=== PATIENT | male | born 2000 | race Two or more races ===

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

== ENCOUNTER 2019-09-06 21:46 | Emergency (ER) | payer SELFPAY ==
[~2019-09-06] VITALS: Ht 170.2 cm; Wt 74.5 kg
[~2019-09-06 21:46] MED LIST: HYDR-2761 PO
--- NOTE | 2019-09-06 22:27 | PHYS DOC ---
Past Medical History Past Medical History: No Pertinent History, Other Additional Past Medical Histor: L SHOULDER DISLOCATIONx2 Past Surgical History: No Surgical History Smoking Status: Current Every Day Smoker Additional Information: .25/ppd Alcohol Use: None Drug Use: None Social History Narrative: last use 09/05/19 General Adult EDM: Chief Complaint: DEHYDRATION HPI: HPI: Patient is a 19 year old male who presents with complaint of generalized body cramps and decreased urination that started earlier in the day about 12 hours ago. Patient indicates that he works out in the heat and has been trying to drink plenty of fluids but states that he feels like he has not been keeping up. He rates pain in his abdominal wall and legs and an 8 out of 10. He denies any nausea or vomiting. He does indicate that his urine has been very dark. [] Review of Systems: Review of Systems: Constitutional: Denies fever or chills. [] Respiratory: Denies cough or shortness of breath. [] Cardiovascular: Denies chest pain or edema. [] GI: Denies abdominal pain, nausea, vomiting or diarrhea. [] Musculoskeletal: Complains of body cramps and pain. [] Integument: Denies rash. [] Neurologic: Denies headache, focal weakness or sensory changes. [] A full 10 point review of systems has been reviewed and is otherwise negative. Heart Score: Risk Factors: Risk Factors: DM, Current or recent (<one month) smoker, HTN, HLP, family hi story of CAD, obesity. Risk Scores: Score 0 - 3: 2.5% MACE over next 6 weeks - Discharge Home Score 4 - 6: 20.3% MACE over next 6 weeks - Admit for Clinical Observation Score 7 - 10: 72.7% MACE over next 6 weeks - Early Invasive Strategies Allergies: Allergies: Allergies Coded Allergies Type Severity Reaction Last Updated Verified No Known Drug Allergies 07/11/16 No Physical Exam: PE: Constitutional: Well developed, well nourished, no acute distress, non-toxic appearance. [] HENT: Normocephalic, atraumatic, bilateral external ears normal, oropharynx moist, no oral exudates, nose normal. [] Eyes: PERRLA, EOMI, conjunctiva normal, no discharge. [] Neck: Normal range of motion, no tenderness, supple, no stridor. [] Cardiovascular:Heart rate regular rhythm, no murmur [] Lungs & Thorax: Bilateral breath sounds clear to auscultation [] Abdomen: Bowel sounds normal, soft, no tenderness. [] Skin: Warm, dry, no erythema, no rash. [] Extremities: No tenderness, no cyanosis, no clubbing, ROM intact, no edema. [] Neurologic: Alert and oriented X 3, no focal deficits noted. [] Current Patient Data: Vital Signs: Vital Signs Date Time Temp Pulse Resp B/P (MAP) Pulse Ox O2 Delivery O2 Flow Rate FiO2 09/06/19 21:50 97.5 112 21 119/71 (87) 99 Room Air 97.5 EKG: EKG: [] Radiology/Procedures: Radiology/Procedures: [] Course & Med Decision Making: Course & Med Decision Making Pertinent Labs and Imaging studies reviewed. (See chart for details) [] Dragon Disclaimer: Dragon Disclaimer: This electronic medical record was generated, in whole or in part, using a voice recognition dictation system. Departure Departure Impression: Primary Impression: Heat cramp, initial encounter Additional Impression: Dehydration Disposition: 01 HOME, SELF-CARE Condition: STABLE Referrals: NO PCP (PCP) Patient Instructions: Dehydration, Adult, Heat Illness-SportsMed Scripts Tramadol Hcl (TRAMADOL HCL) 50 Mg Tablet 50 MG PO Q6HRS PRN for PAIN, #10 TAB Prov: SERGEY LEDESMA Jr. DO 09/06/19 Ondansetron (ONDANSETRON ODT) 4 Mg Tab.rapdis 1 TAB PO PRN Q6-8HRS PRN for NAUSEA, #15 TAB Prov: SERGEY LEDESMA Jr. DO 09/06/19 Justicifation of Admission Dx: Justifications for Admission: Justification of Admission Dx: Comment: (Not applicable) SERGEY LEDESMA Jr. DO Sep 06, 2019 22:27
[2019-09-06 22:29] LABS: BASO % 0 % (0-3); EOS % 0 % (0-3); HEMOGLOBIN 17.4 g/dL (13.0-17.5); MEAN CORPUSCULAR HEMOGLOBIN 30 pg (25-35); MONO % 11 % (0-9); NEUT # 6.9 x10^3/uL (1.8-7.7); RED BLOOD COUNT 5.81 x10^6/uL (4.30-5.70)
[2019-09-06] MEDS ORDERED: fentaNYL PF VIAL 100 MCG/2 ML VIAL IV PRN (22:30)
[2019-09-06] MEDS ORDERED: ONDANSETRON PF 4 MG/2 ML VIAL. IVP ONE (22:30)
[2019-09-06] MEDS ORDERED: IV NORMAL SALINE 1000ML BAG 1,000 ML IV SCH (22:30)
[2019-09-06 22:38] LABS: CALCIUM 9.7 mg/dL (8.5-10.1); CREATININE 1.5 mg/dL (0.7-1.3); GFR 59.1; POTASSIUM 3.4 mmol/L (3.5-5.1)
[2019-09-06 22:45] LABS: ALBUMIN 5.1 g/dL (3.4-5.0); ALBUMIN/GLOBULIN RATIO 1.5 (1.0-1.7); TOTAL BILIRUBIN 1.5 mg/dL (0.2-1.0); TOTAL PROTEIN 8.4 g/dL (6.4-8.2)
[2019-09-06 22:48] LABS: BILIRUBIN,URINE NEGATIVE (NEG); CLARITY,URINE CLEAR; COLOR,URINE AMBER; NITRITE,URINE NEGATIVE (NEG); PH,URINE 8.5 (<5.0-8.0); PROTEIN,URINE 30 mg/dL (NEG-TRACE)
[2019-09-06 22:56] LABS: HEMATOCRIT 49.2 % (39.0-53.0); LYMPH % 26 % (24-48); MEAN CORPUSCULAR HGB CONC 35 g/dL (31-37); MEAN CORPUSCULAR VOLUME 85 fL (79-100); NEUT % 63 % (31-73); PLATELET COUNT 394 x10^3/uL (140-400); RED CELL DISTRIBUTION WIDTH 13.4 % (11.5-14.5); WHITE BLOOD COUNT 11.1 x10^3/uL (4.0-11.0)
[2019-09-06 22:57] LABS: LYMPH # 2.9 x10^3/uL (1.0-4.8); MONO # 1.2 x10^3/uL (0.0-1.1)
[2019-09-06 23:00] LABS: AMORPHOUS SEDIMENT,UR PRESENT /HPF; BACTERIA,URINE 0 /HPF (0-FEW); RBC,URINE 0 /HPF (0-2); SQUAMOUS EPITHELIAL CELL,UR FEW /LPF; WBC,URINE RARE /HPF (0-4)
[2019-09-06] MEDS ORDERED: IV NORMAL SALINE 1000ML BAG 1,000 ML IV ONE (23:15)
[2019-09-06 23:24] VITALS: BP 105/55
[2019-09-06] MEDS ORDERED: TRAM50TA PO (23:42)
[2019-09-06] MEDS ORDERED: ONDA4TAB12 PO (23:42)
== END 2019-09-06 23:55 | disposition home or self-care (01) ==
LOC: ER 21:46
DX: T67.2XXA Heat cramp, initial encounter (principal); E86.0 Dehydration; F17.200 Nicotine dependence, unspecified, uncomplicated; X58.XXXA Exposure to other specified factors, initial encounter; Y93.89 Activity, other specified; Y92.89 Other specified places as the place of occurrence of the external cause; Y99.8 Other external cause status
CPT/HCPCS: 36415; 80053; 81001; 82550; 83690; 85025; 96361; 96374; 96375; 99284; J2405; J3010; J7030

== ENCOUNTER 2019-09-15 19:24 | Emergency (ER) | payer SELFPAY ==
[~2019-09-15] VITALS: Ht 167.6 cm; Wt 72.7 kg
[~2019-09-15 19:24] MED LIST changes: +ONDA4TAB12 PO; +TRAM50TA PO
[2019-09-15 19:26] VITALS: BP 130/70
--- NOTE | 2019-09-15 20:19 | PHYS DOC ---
Past Medical History Past Medical History: No Pertinent History, Other Additional Past Medical Histor: L SHOULDER DISLOCATIONx2 Past Surgical History: No Surgical History Smoking Status: Current Every Day Smoker Alcohol Use: Rarely Drug Use: None General Adult EDM: Chief Complaint: SHOULDER INJURY HPI: HPI: Patient is a 19 year old male who presents to the emergency department with complaints of left shoulder pain. Patient reports history of multiple dislocations of his left arm. He states that he was trying to take off his sh irt and felt something abnormal in his left shoulder. Patient denies any injury today. He denies any numbness, tingling, or weakness of the affected extremity. Patient states that since he has been at the emergency department his shoulder pain has improved and he is now able to move his shoulder in all directions without any pain or difficulty. He currently denies pain. Review of Systems: Review of Systems: Constitutional: Denies fever or chills. [] Musculoskeletal: Denies back pain or joint pain. [] Integument: Denies rash. [] Neurologic: Denies headache, focal weakness or sensory changes. [] Psychiatric: Denies depression or anxiety. [] Heart Score: Risk Factors: Risk Factors: DM, Current or recent (<one month) smoker, HTN, HLP, family history of CAD, obesity. Risk Scores: Score 0 - 3: 2.5% MACE over next 6 weeks - Discharge Home Score 4 - 6: 20.3% MACE over next 6 weeks - Admit for Clinical Observation Score 7 - 10: 72.7% MACE over next 6 weeks - Early Invasive Strategies Allergies: Allergies: Allergies Coded Allergies Type Severity Reaction Last Updated Verified No Known Drug Allergies 07/11/16 No Physical Exam: PE: Constitutional: Well developed, well nourished, no acute distress, non-toxic appearance. [] HENT: Normocephalic, atraumatic, bilateral external ears normal, nose normal. [] Eyes: PERRLA, EOMI, conjunctiva normal, no discharge. [] Neck: Normal range of motion, no stridor. [] Cardiovascular:Heart rate regular rhythm Lungs & Thorax: Respirations even and unlabored, no retractions, no respiratory distress Skin: Warm, dry, no erythema, no rash. [] Extremities: Left shoulder: No bony tenderness, no deformity, no crepitus, no cyanosis, ROM intact, no edema. [] Neurologic: Alert and oriented X 3, no focal deficits noted. [] Psychologic: Affect normal, judgement normal, mood normal. [] Current Patient Data: Vital Signs: Vital Signs Date Time Temp Pulse Resp B/P (MAP) Pulse Ox O2 Delivery O2 Flow Rate FiO2 09/15/19 19:26 98.3 93 14 130/70 (90) 99 Room Air 98.3 EKG: EKG: [] Radiology/Procedures: Radiology/Procedures: [] Course & Med Decision Making: Course & Med Decision Making Pertinent Labs and Imaging studies reviewed. (See chart for details) Offered a shoulder x-ray to patient for evaluation of possible resolved dislocation. Pt declined at this time. Will provide pt with Dr. Barragan's informa tion for further evaluation of frequent left shoulder dislocations. Take ibuprofen or tylenol as needed for pain. Patient verbalized an understanding of home care, medications, follow-up, and return to ED instructions and was in agreement with the plan of care. [] Dragon Disclaimer: Dragon Disclaimer: This electronic medical record was generated, in whole or in part, using a voice recognition dictation system. Departure Departure Impression: Primary Impression: Acute pain of left shoulder Disposition: HOME, SELF-CARE Condition: STABLE Referrals: RADHA BARRAGAN II, MD Patient Instructions: Shoulder Pain, [id number] Additional Instructions: Fill prescription(s) and use as directed. Recommend application of ice, elevation, and rest of affected extremity. Follow-up with Dr. Barragan for furt her evaluation of your shoulder. Return to the ER if your symptoms worsen. Justicifation of Admission Dx: Justifications for Admission: Justification of Admission Dx: N/A YURI POTTS VB DEVELOPER Sep 15, 2019 20:18
== END 2019-09-15 20:26 | disposition home or self-care (01) ==
LOC: ER 19:24
DX: M25.512 Pain in left shoulder (principal); F17.200 Nicotine dependence, unspecified, uncomplicated; Z98.890 Other specified postprocedural states
CPT/HCPCS: 99282

== ENCOUNTER 2021-08-17 03:43 | Emergency (ER) | payer BC ==
[~2021-08-17] VITALS: Ht 172.7 cm; Wt 72.7 kg
[2021-08-17] MEDS ORDERED: HYDROmorphone 2 MG/ML INJ. IVP ONE ×2 (04:15→05:15)
[2021-08-17] MEDS ORDERED: LIDOCAINE 1% PF 5 ML VIAL. INJ ONE (04:15)
--- NOTE | 2021-08-17 04:26 | RAD ---
2 views left shoulder 4:14 AM History: pain AP of shoulder obtained, as well as "Y" view. The humeral head projects inferior anterior and medial to the glenoid. The remaining visualized osseo us structures appear normal. Impression: Anterior dislocation left shoulder. end impression Electronically signed by: Nicoals Irby III, MD (08/17/2021 4:24 AM) [facility]
[2021-08-17] MEDS ORDERED: PROPOFOL 10 MG/ML (20ML) VIAL. IV ONE (05:30)
[2021-08-17] MEDS ORDERED: KETAMINE HCL IN NACL, ISO-OSM 50 MG/5 ML SYRINGE IV ONE (05:30)
[2021-08-17] MEDS ORDERED: ONDANSETRON PF 4 MG/2 ML VIAL. ONE (05:34)
[2021-08-17 05:46] VITALS: BP 140/71
--- NOTE | 2021-08-17 06:01 | RAD ---
2 views left shoulder 5:50 AM History: Post reduction AP of shoulder obtained, as well as "Y" view. COMPARISON: 4:14 AM The glenohumeral relationship is normal. The visualized osseous structures appear normal. Impression: Status post successful reduction. end impression Electronically signed by: Nicolas Irby III, MD (08/17/2021 5:59 AM) [facility]
--- NOTE | 2021-08-17 06:17 | PHYS DOC ---
Past Medical History Past Medical History: No Pertinent History, Other Additional Past Medical Histor: REPEATED SHOULDER DISLOCATION Past Surgical History: No Surgical History Smoking Status: Current Every Day Smoker Additional Information: VAPE Alcohol Use: Occasionally Drug Use: None General Adult EDM: Chief Complaint: SHOULDER INJURY HPI: HPI: Patient is a 21 year old male who presents to the emergency department today with complaints of left shoulder pain and concern for shoulder dislocation. Patient states that he has dislocated his shoulder multiple times with the last being in February. He states he rolled over in bed the night and felt a pop and knew that his shoulder was out. He states he had immediate intense pain. Pain is worse with movement. There are no palliative factors for it. He states pain is about a 7 out of 10. He denies any other pain injury at this time Review of Systems: Review of Systems: Constitutional: Denies fever or chills. [] Eyes: Denies change in visual acuity. [] HENT: Denies nasal congestion or sore throat. [] Respiratory: Denies cough or shortness of breath. [] Cardiovascular: Denies chest pain or edema. [] GI: Denies abdominal pain, nausea, vomiting, bloody stools or diarrhea. [] : Denies dysuria. [] Musculoskeletal: Denies back pain[] Integument: Denies rash. [] Neurologic: Denies headache, focal weakness or sensory changes. [] Endocrine: Denies polyuria or polydipsia. [] Lymphatic: Denies swollen glands. [] Psychiatric: Denies depression or anxiety. [] Heart Score: C/O Chest Pain: No Family History: Family History: Noncontributory Current Medications: Current Medications Medications (Trade) Dose Ordered Sig/[facility]ann Start Time Stop Time Status Last Admin Dose Admin Hydromorphone HCl (Dilaudid) 1 mg 1X ONCE 08/17/21 05:15 08/17/21 05:16 DC 08/17/21 05:17 1 MG Ketamine HCl (Ketamine) 50 mg 1X ONCE 08/17/21 05:30 08/17/21 05:31 DC Lidocaine HCl (Xylocaine-Mpf 1% 5ml Vial) 20 ml 1X ONCE 08/17/21 04:15 08/17/21 04:16 DC 08/17/21 04:39 20 ML Ondansetron HCl (Zofran) 4 mg STK-MED ONCE 08/17/21 05:34 08/17/21 05:34 DC Propofol (Diprivan) 200 mg 1X ONCE 08/17/21 05:30 08/17/21 05:31 DC 08/17/21 05:42 70 MG Allergies: Allergies: Allergies Coded Allergies Type Severity Reaction Last Updated Verified No Known Drug Allergies 08/17/21 No Physical Exam: PE: Constitutional: Well developed, well nourished, no acute distress, non-toxic appearance. [] HENT: Normocephalic, atraumatic, bilateral external ears normal, oropharynx moist, no oral exudates, nose normal. [] Eyes: PERRLA, EOMI, conjunctiva normal, no discharge. [] Neck: Normal range of motion, no tenderness, supple, no stridor. [] Cardiovascular:Heart rate regular rhythm, no murmur [] Lungs & Thorax: Bilateral breath sounds clear to auscultation [] Abdomen: Bowel sounds normal, soft, no tenderness, no masses, no pulsatile masses. [] Skin: Warm, dry, no erythema, no rash. [] Back: No tenderness, no CVA tenderness. [] Extremities: Obvious deformity to the left shoulder. Patient has 2+ radial pulses. His median ulnar and radial nerves are intact. His axillary nerve is also intact with a positive Chevron sign. Neurologic: Alert and oriented X 3, normal motor function, normal sensory function, no focal deficits noted. [] Psychologic: Affect normal, judgement normal, mood normal. [] Current Patient Data: Vital Signs: Vital Signs Date Time Temp Pulse Resp B/P (MAP) Pulse Ox O2 Delivery O2 Flow Rate FiO2 08/17/21 05:46 98.2 85 16 140/71 2.0 84 10 08/17/21 04:04 100 Room Air EKG: EKG: [] Radiology/Procedures: Radiology/Procedures: 2 views left shoulder 4:14 AM History: pain AP of shoulder obtained, as well as "Y" view. The humeral head projects inferior anterior and medial to the glenoid. The remaining visualized osseous structures appear normal. Impression: Anterior dislocation left shoulder. end impression Electronically signed by: Nicolas Irby III, MD (08/17/2021 4:24 AM) [facility] [] 2 views left shoulder 5:50 AM History: Post reduction AP of shoulder obtained, as well as "Y" view. COMPARISON: 4:14 AM The glenohumeral relationship is normal. The visualized osseous structures appear normal. Impression: Status post successful reduction. end impression Electronically signed by: Nicolas Irby III, MD (08/17/2021 5:59 AM) [facility] Impression: Left anterior shoulder dislocation Course & Med Decision Making: Course & Med Decision Making Patient remained hemodynamically stable in the emergency department. He was evaluated at the bedside with aIndication: [] Consent: I have discussed with the patient and/or the patient passenger representative the indication, alternatives, and the possible risks and /or complications of the planned procedure and the anesthesia methods. The patient and/or patient passenger representative appear to understand and agree to proceed. Pre-Sedation Documentation and Exam: ASA 1. Airway Airway Assessment: normal. Prior History of Anesthesia Complications: none. ASA Classification: ASA Sedation/ Anesthesia Plan: Propofol Medications Used: see nursing notes. Monitoring and Safety: The patient was placed on a monitor tech and vital signs, pulse oximetry and level of consciousness were continuously evaluated throughout the procedure. The patient was closely monitored until recovery from the medications was complete and the patient had returned to baseline status. Respiratory therapy was on standby at all times during the procedure. (The following sections must be completed) Post-Sedation Vital Signs: pleasde see nursing Post-Sedation Exam: Awake and oriented x3. Shoulder is reduced. Heart exam regular rhythm rate without murmur. Lung exam lungs clear to auscultation bilaterally. Abdominal exam abdomen soft nontender nondistended. Complications: none. physical exam. Patient does have a left anterior shoulder dislocation. Patient was sedated with propofol and reduced using the Philip technique. Postreduction films show successful shoulder reduction. Please see my procedure note further details. Patient was observed here in the emergency department. A sling was placed. He will be discharged home and given instructions to follow-up with orthopedics. [place] Disclaimer: [place] Disclaimer: This electronic medical record was generated, in whole or in part, using a voice recognition dictation system. Departure Departure Impression: Primary Impression: Dislocation of shoulder, left, closed Disposition: 01 HOME / SELF CARE / HOMELESS Condition: IMPROVED Referrals: NO PCP (PCP) NAREN SIU DO Patient Instructions: Shoulder Dislocation KYM RESENDEZ MD August 17, 2021 06:17
[2021-08-17] MEDS ORDERED: ONDANSETRON PF 4 MG/2 ML VIAL. IVP ONE (07:00)
[2021-08-17 07:28] VITALS: BP 135/63
== END 2021-08-17 07:30 | disposition home or self-care (01) ==
LOC: ER 03:43
DX: S43.005A Unspecified dislocation of left shoulder joint, initial encounter (principal); F17.200 Nicotine dependence, unspecified, uncomplicated; X50.9XXA Other and unspecified overexertion or strenuous movements or postures, initial encounter; Y93.89 Activity, other specified; Y92.89 Other specified places as the place of occurrence of the external cause; Y99.8 Other external cause status
CPT/HCPCS: 23650; 73030; 96374; 99285; J1170; J2405; J2704; J3490

== ENCOUNTER 2021-08-20 10:29 | Emergency (ER) | payer SELFPAY ==
[~2021-08-20] VITALS: Ht 170.2 cm; Wt 76.4 kg
[2021-08-20 10:40] VITALS: BP 127/81
[2021-08-20] MEDS ORDERED: oxyCODONE/APAP 5/325 1 TAB TABLET PO ONE (10:45)
[2021-08-20] MEDS ORDERED: IBUPROFEN 200 MG TABLET. PO ONE (10:45)
--- NOTE | 2021-08-20 11:32 | PHYS DOC ---
Past Medical History Past Medical History: No Pertinent History, Other Additional Past Medical Histor: REPEATED SHOULDER DISLOCATION Past Surgical History: No Surgical History Smoking Status: Current Every Day Smoker Alcohol Use: Occasionally Drug Use: None General Adult EDM: Chief Complaint: SHOULDER INJURY HPI: HPI: Patient is a 21 year old male who presents with pain and deformity to his left shoulder after try to take his shirt off this morning. Patient has past medical history of numerous shoulder dislocations, dislocation this morning was atraumatic, associated with severe pain, limited range of motion, denies numbness weakness tingling. Review of Systems: Review of Systems: Constitutional: Denies fever or chills. [] Eyes: Denies change in visual acuity. [] HENT: Denies nasal congestion or sore throat. [] Respiratory: Denies cough or shortness of breath. [] Cardiovascular: Denies chest pain or edema. [] GI: Denies abdominal pain, nausea, vomiting, bloody stools or diarrhea. [] : Denies dysuria. [] Musculoskeletal: L shoulder pain and limited ROM Integument: Denies rash. [] Neurologic: Denies headache, focal weakness or sensory changes. [] Endocrine: Denies polyuria or polydipsia. [] Lymphatic: Denies swollen glands. [] Psychiatric: Denies depression or anxiety. [] Heart Score: C/O Chest Pain: N/A Risk Factors: Risk Factors: DM, Current or recent (<one month) smoker, HTN, HLP, family history of CAD, obesity. Risk Scores: Score 0 - 3: 2.5% MACE over next 6 weeks - Discharge Home Score 4 - 6: 20.3% MACE over next 6 weeks - Admit for Clinical Observation Score 7 - 10: 72.7% MACE over next 6 weeks - Early Invasive Strategies Current Medications: Current Medications Medications (Trade) Dose Ordered Sig/Ryann Start Time Stop Time Status Last Admin Dose Admin Ibuprofen (Motrin) 600 mg 1X ONCE 08/20/21 10:45 08/20/21 10:46 DC 08/20/21 10:48 600 MG Oxycodone/ Acetaminophen (Percocet 5/325) 1 tab 1X ONCE 08/20/21 10:45 08/20/21 10:46 DC 08/20/21 10:49 1 TAB Allergies: Allergies: Allergies Coded Allergies Type Severity Reaction Last Updated Verified No Known Drug Allergies 08/17/21 No Physical Exam: PE: Constitutional: Well developed, well nourished, no acute distress, non-toxic appearance. [] HENT: Normocephalic, atraumatic, bilateral external ears normal, oropharynx moist, no oral exudates, nose normal. [] Eyes: PERRLA, EOMI, conjunctiva normal, no discharge. [] Neck: Normal range of motion, no tenderness, supple, no stridor. [] Cardiovascular:Heart rate regular rhythm, no murmur [] Lungs & Thorax: Bilateral breath sounds clear to auscultation [] Abdomen: Bowel sounds normal, soft, no tenderness, no masses, no pulsatile masses. [] Skin: Warm, dry, no erythema, no rash. [] Back: No tenderness, no CVA tenderness. [] Extremities: L shoulder with deformity, limited ROM d/t pain, normal pulses and sensation in L wrist. Neurologic: Alert and oriented X 3, normal motor function, normal sensory function, no focal deficits noted. [] Psychologic: Affect normal, judgement normal, mood normal. [] Current Patient Data: Vital Signs: Vital Signs Date Time Temp Pulse Resp B/P (MAP) Pulse Ox O2 Delivery O2 Flow Rate FiO2 08/20/21 10:49 18 98 Room Air 08/20/21 10:40 98.2 80 127/81 (96) 98.2 EKG: EKG: [] Radiology/Procedures: Radiology/Procedures: 2 views of left shoulder Impression: Prereduction x-ray shows anterior dislocation of the left humeral head, no evidence of fracture, postreduction films with good alignment, Course & Med Decision Making: Course & Med Decision Making Pertinent Labs and Imaging studies reviewed. (See chart for details) Gave the patient Motrin and Percocet for pain and then reduce the shoulder with downward traction external rotation, patient tolerated the procedure well, postreduction x-ray obtained, patient placed in sling will follow up with his orthopedist. [place] Disclaimer: [place] Disclaimer: This electronic medical record was generated, in whole or in part, using a voice recognition dictation system. Departure Departure Impression: Primary Impression: Dislocation of shoulder, left, closed Qualified Codes: S43.005A - Unspecified dislocation of left shoulder joint, initial encounter Disposition: HOME / SELF CARE / HOMELESS Condition: IMPROVED Referrals: NO PCP (PCP) Patient Instructions: Shoulder Dislocation, [id number] Procedure Note Procedure: Reduction of dislocation Indications: Left anterior shoulder dislocation Complications: None Procedural Details: Patient placed in upright position, left arm hung over the back of the chair, inline traction to the left arm was applied with gentle external rotation, joint reduced without complication, patient's neurovascular exam pre and post was normal. Patient tolerated very well. Conclusions: Successful shoulder dislocation, patient placed in a sling and will follow up with his orthopedist NICO WHITE MD August 20, 2021 11:32
--- NOTE | 2021-08-20 11:37 | RAD ---
Exam: XR SHOULDER_LEFT 2+ VIEWS, XR SHOULDER_LEFT 2+ VIEWS History: Shoulder dislocation postreduction Comparison: Technique: 2 views the left shoulder at 10:45 AM and 2 views the left shoulder at 11:15 AM. Findings: Osseous mineralization is normal. The initial radiographs demonstrate an anterior left shoulder dislo cation. Subsequent radiographs demonstrate normal alignment at the left shoulder with successful redu ction. Limited views without evidence of fracture. Soft tissues are unremarkable. Impression: 1. Anterior left shoulder dislocation with successful reduction on subsequent radiographs. Electronically signed by: Will Serrano MD (08/20/2021 11:34 AM) [id number]
== END 2021-08-20 11:58 | disposition home or self-care (01) ==
LOC: ER 10:29
DX: S43.005A Unspecified dislocation of left shoulder joint, initial encounter (principal); F17.200 Nicotine dependence, unspecified, uncomplicated; X58.XXXA Exposure to other specified factors, initial encounter; Y93.89 Activity, other specified; Y92.89 Other specified places as the place of occurrence of the external cause; Y99.8 Other external cause status
CPT/HCPCS: 23650; 73030; 99284